=== PATIENT | male | born 1975 | race Caucasian/White ===

== ENCOUNTER 2024-08-22 06:50 | Outpatient (CLI) | payer OTHER ==
[2024-08-22 07:38] LABS: HEMATOCRIT 44.6 % (39.0-48.0); HEMOGLOBIN 15.3 g/dL (13-16.00); MEAN CELL VOLUME 92.6 fL (80.0-100.00); MEAN CORPUSCULAR HEMOGLOBIN 31.8 pg (27.00-32.0); MEAN CORPUSCULAR HGB CONC 34.3 g/dl (32.0-36.0); PLATELET COUNT 281 K/uL (150-450); RED BLOOD COUNT 4.82 M/uL (4.00-6.00); RED CELL DISTRIBUTION WIDTH 13.7 % (11.5-14.5)
[2024-08-22 08:32] LABS: BILIRUBIN TOTAL 0.69 mg/dL (0.3-1.2); CALCIUM 9.6 mg/dL (8.5-10.1); CHOL HDL RATIO 3.4 (0-5.0); CREATININE SERUM 0.97 mg/dL (0.70-1.30); GFR 82.26; GLOBULINA 3.4 G/DL (2.4-3.5); POTASSIUM 4.41 mEq/L (3.5-5.1); T4 TOTAL 8.38 UG/DL (4.5-12.1); TOTAL PROTEIN 7.4 gm/dL (6.4-8.2); TSH 4.05 uIU/mL (0.358-3.74)
== END 2024-08-22 06:55 | disposition home or self-care (01) ==
LOC: LAB 06:50
DX: D64.9 Anemia, unspecified (principal); R94.5 Abnormal results of liver function studies; E78.9 Disorder of lipoprotein metabolism, unspecified; E06.9 Thyroiditis, unspecified

== ENCOUNTER 2025-03-22 06:47 | Outpatient (CLI) | payer OTHER ==
[2025-03-22 08:03] LABS: BASO % 0.8 % (0.1-1.2); EOS # 0.08 (0.04-0.54); EOS % 1.5 % (0.7-7.0); LYMPH # 1.75 (1.18-3.74); LYMPH % 33.7 % (19.3-53.1); MEAN PLATELET VOLUME 9.20 fl (9.4-12.4); MONO # 0.47 (0.24-0.82); MONO % 9.0 % (4.7-12.5); NEUT # 2.85 (1.56-6.13); NEUT % 54.8 % (34.0-71.1); RED CELL DISTRIBUTION WIDTH 12.8 % (11.6-14.4)
[2025-03-22 08:17] LABS: URINE APPEARANCE Clear; URINE BILIRRUBIN Negative (NEGATIVE); URINE BLOOD NHT; URINE COLOR Yellow; URINE GLUCOSE Negative (NEGATIVE); URINE KETONE Negative (NEGATIVE); URINE LEUKOCYTE Negative; URINE NITRATE Negative; URINE PROTEIN Trace (NEGATIVE); URINE UROBILINOGEN 1.0 E.U./dl
[2025-03-22 08:18] LABS: URINE BACTERIA 49.2 uL (0.0-1933); URINE RBC 24.3 uL (0.0-20.8); URINE WBC 5.9 uL (0.0-23.2)
[2025-03-22 08:22] LABS: URINE CAST 0.14 uL (0.0-1.40); URINE EPITHELIAL CELLS 1.2 uL (0.0-38.8)
[2025-03-22 08:57] LABS: ob NEGATIVE (NEGATIVE)
[2025-03-22 10:46] LABS: ALT/SGPT 51 U/L (12-78); AST/SGOT 20 U/L (15-37); BILIRUBIN TOTAL 0.58 mg/dL (0.3-1.2); BUN CREA RATIO 13 (7.0-25.0); CHOL HDL RATIO 3.9 (0-5.0); CREATININE SERUM 1.01 mg/dL (0.70-1.30); GFR 78.19; GLOBULINA 3.5 G/DL (2.4-3.5); GLUCOSE FASTING 109 mg/dL (65-100); HDL 58 mg/dl (40-60); LDL 155 mg/dl (0-130); OSMOLALITY SERUM 276 MOSM/KG (275-295); VLDL 15 (0-39)
[2025-03-22 10:59] LABS: PROSTATIC SPECIFIC ANTIGEN 1.330 NG/ML (0.010-4.00); T4 FREE 0.95 NG/ML (0.76-1.46); TSH 3.120 uIU/mL (0.358-3.74)
== END 2025-03-22 07:01 | disposition home or self-care (01) ==
LOC: LAB 06:47
PROVIDERS: ATTEND Internal Medicine
DX: Z00.00 Encounter for general adult medical examination without abnormal findings (principal)

== ENCOUNTER 2025-05-24 12:54 | Emergency (ER) | payer OTHER ==
[~2025-05-24] VITALS: Ht 175.3 cm; Wt 83.9 kg
[2025-05-24] MEDS ORDERED: KETOROLAC TROMETHAMINE 60 MG VIAL IM ONE ×2 (13:45→15:10)
[2025-05-24] MEDS ORDERED: CEFTRIAXONE SODIUM 1,000 MG VIAL IM ONE (13:45)
[2025-05-24] MEDS ORDERED: BENZONATATE 200 MG CAPSULE PO ONE (13:45)
[2025-05-24] MEDS ORDERED: CETIRIZINE HCL 5 MG/5 ML ML PO ONE (13:45)
[2025-05-24] MEDS ORDERED: LIDOCAINE HCL/MPF 1% 5ML VIAL IJ ONE (15:10)
[2025-05-24] MEDS ORDERED: CEFTRIAXONE SODIUM 1,000 MG VIAL ONE (15:10)
[2025-05-24] MEDS ORDERED: CETIRIZINE HCL 5MG/5ML BLIST.PACK PO ONE (15:10)
[2025-05-24 15:51] LABS: BASO % 0.5 % (0.1-1.2); EOS # 0.07 (0.04-0.54); EOS % 0.6 % (0.7-7.0); LYMPH # 2.12 (1.18-3.74); LYMPH % 19.2 % (19.3-53.1); MEAN PLATELET VOLUME 9.20 fl (9.4-12.4); MONO # 0.57 (0.24-0.82); MONO % 5.2 % (4.7-12.5); NEUT # 8.18 (1.56-6.13); NEUT % 74.1 % (34.0-71.1); RED CELL DISTRIBUTION WIDTH 12.7 % (11.6-14.4)
[2025-05-24 16:14] LABS: COVID-19 AG NEGATIVE (NEGATIVE)
[2025-05-24] MEDS ORDERED: ALLER-TEC10 MG PO (16:50)
[2025-05-24] MEDS ORDERED: INTESTINEX680 M1 PO (16:50)
[2025-05-24] MEDS ORDERED: PAIN RELIEF EX500 MG PO (16:50)
[2025-05-24] MEDS ORDERED: MUCINEX DM ER1 EAC1 PO (16:50)
[2025-05-24] MEDS ORDERED: AMOX-CLAV 875-1 EACH PO (16:50)
== END 2025-05-24 17:00 | disposition home or self-care (01) ==
LOC: ER 12:55
PROVIDERS: General Practice
DX: J98.8 Other specified respiratory disorders (principal); B34.8 Other viral infections of unspecified site; Z20.822 Contact with and (suspected) exposure to COVID-19